=== PATIENT | male | born 1960 | race Caucasian/White ===

== ENCOUNTER → 2020-01-15 09:48 | Outpatient (CLI) | payer MEDICAID, SELFPAY ==
[2020-01-15 10:21] LABS: Basophils % 0.2 % (0.1-2.0); Eosinophils # 0.1 K/mm3 (0.0-0.4); Eosinophils % 4.3 % (0.1-12.0); Hematocrit 26.5 % (42.0-52.0); Hemoglobin 8.2 g/dL (14.1-18.0); Lymphocytes # 0.6 K/mm3 (0.7-4.5); Mean Corpuscular Hemoglobin 32.7 pg (27.0-31.2); Mean Corpuscular Volume 105.5 fl (80-94); Mean Platelet Volume 10.5 fl (7.4-10.4); Monocytes # 0.1 K/mm3 (0.1-1.0); Neutrophils # 1.7 K/mm3 (1.8-7.8); Neutrophils % 67.5 % (37.0-80.0); Platelet Count 77 K/mm3 (142-424); Red Blood Count 2.51 M/mm3 (4.60-6.20); Red Cell Distribution Width 16.3 % (11.5-17.5); White Blood Count 2.5 K/mm3 (4.8-10.8)
[2020-01-15 10:48] LABS: Chloride 106 mmol/L (98-107)
[2020-01-15 10:49] LABS: Potassium 4.5 mmoL/L (3.5-5.1); Sodium 138 mmol/L (136-145)
[2020-01-15 10:51] LABS: Alanine Aminotransferase 11 U/L (12-78); Alkaline Phosphatase 191 U/L (38-126); Anion Gap 9.5 mEq/L (5-15); Aspartate Amino Transferase 45 U/L (17-59); Blood Urea Nitrogen 17 mg/dl (9-20); Carbon Dioxide 27 mmol/L (22.0-30.0); Estimated Glomerular Filt Rate 62 ml/min (>60); GFR (African American) 75 ML/MIN (>60)
[2020-01-15 10:52] LABS: Albumin Level 2.8 g/dl (3.5-5.0); Albumin/Globulin Ratio 0.9 (1.1-1.8); Calcium 8.2 mg/dl (8.4-10.2); Glucose 158 mg/dl (74-100); Total Protein,Serum 5.8 g/dl (6.3-8.2)
[2020-01-15 12:24] LABS: INR 1.15 (0.9-1.1); Prothrombin Time 11.5 seconds (9.4-11.8)
[2020-01-16 13:01] LABS: AFP, Tumor Marker 2.3 ng/mL (0.0-8.3)
== END ==
PROVIDERS: Visit Provider Nurse Practitioner Family
DX: K74.60 Unspecified cirrhosis of liver (principal)
CPT/HCPCS: 36415; 80053; 82105; 85025; 85610

== ENCOUNTER → 2020-02-19 09:38 | Outpatient (CLI) | payer MEDICAID, SELFPAY ==
[2020-02-19 10:02] LABS: Basophils % 0.9 % (0.1-2.0); Eosinophils # 0.1 K/mm3 (0.0-0.4); Eosinophils % 3.9 % (0.1-12.0); Hematocrit 24.7 % (42.0-52.0); Lymphocytes # 0.5 K/mm3 (0.7-4.5); Lymphocytes % 22.1 % (10-50); Mean Corpuscular HGB Conc 30.2 g/dL (31.8-35.4); Mean Corpuscular Hemoglobin 31.5 pg (27.0-31.2); Mean Corpuscular Volume 104.3 fl (80-94); Mean Platelet Volume 11.2 fl (7.4-10.4); Monocytes # 0.2 K/mm3 (0.1-1.0); Monocytes % 6.2 % (1.7-9.3); Neutrophils # 1.6 K/mm3 (1.8-7.8); Neutrophils % 66.9 % (37.0-80.0); Platelet Count 88 K/mm3 (142-424); Red Blood Count 2.37 M/mm3 (4.60-6.20); Red Cell Distribution Width 18.1 % (11.5-17.5); White Blood Count 2.4 K/mm3 (4.8-10.8)
[2020-02-19 10:36] LABS: Hemoglobin 7.5 g/dL (14.1-18.0)
== END ==
PROVIDERS: Visit Provider Nurse Practitioner Family
DX: K74.60 Unspecified cirrhosis of liver (principal); I85.00 Esophageal varices without bleeding
CPT/HCPCS: 36415; 85025

== ENCOUNTER 2020-02-19 12:49 | Emergency (ER) | payer MEDICAID, SELFPAY ==
[2020-02-19] VITALS (7 sets, daily range): BP systolic 119–159; BP diastolic 58–74; PULSE 69–94; RESP 17–20; TEMP 36.6–36.9; O2SAT 99–100; BMI 50.7
--- NOTE | 2020-02-19 13:06 | XR_ITS ---
PROCEDURE: XR CHEST PORTABLE CLINICAL HISTORY: fatigue Assist C with COMPARISON: No exams were available for comparison FINDINGS: Mild cardiomegaly without failure. Left subclavian MediPort catheter is present with the tip in the region of the SVC. There is minimal parenchymal opacity in the left midlung may be due to scarring or overlapping vessels. Upright PA and lateral chest may better ascertain. The remaining lungs are clear. There is an old right clavicular fracture. Degenerative changes are present in the shoulders. IMPRESSION: Cardiomegaly. No definite acute finding. Please see above for detail. Dictated by: Kamlesh Chu MD 02/19/2020 14:50 Kamlesh Chu MD in [place] 02/19/2020 14:50
--- NOTE | 2020-02-19 13:12 | HMH.EDGENADL ---
ED Disposition Clinical Impression: Pancytopenia Liver cirrhosis Qualifiers: Hepatic cirrhosis type: unspecified hepatic cirrhosis Ascites presence: with ascites Qualified Code(s): K74.60 - Unspecified cirrhosis of liver Disposition: Home, Self-Care Condition on Discharge: Fair Instructions: DI for Cirrhosis Additional Instructions: You have been evaluated for anemia and pancytopenia. Please take all medications as prescribed. Avoid falls. Follow-up with Dr. Lerner in clinic Monday morning at 9:45 AM. Return to the emergency department if you have any new or worsening symptoms. Referrals: Bebeto Lerner MD [Primary Care Provider] - Time of Disposition: 16:13 - Critical Care Critical Care Time: No Attestation: On , the high probability of a clinically significant, sudden or life threatening deterioration of the following system(s) required my full and direct attention, intervention and personal management. The time I documented below is in addition to time spent performing reported procedures but includes the following listed in this critical care notation. Medical Decision Making - Medical Records Medical records reviewed: Yes: I reviewed the patient's medical records. - Keith Inquiry Pt receiving controlled substance: No Vital Signs: 02/19/20 12:58 02/19/20 13:37 02/19/20 14:00 Temperature 98.4 F Temperature Source Oral Pulse Rate [Right Radial] 82 69 94 H Respiratory Rate 17 20 18 Blood Pressure [Right Arm] 148/72 H 129/71 119/61 Blood Pressure Mean [Right Arm] 97 90 80 Blood Pressure Source [Right Arm] Automatic Cuff Automatic Cuff Blood Pressure Position [Right Arm] Sitting Sitting 02 Sat by Pulse Oximetry 100 100 99 Oxygen Delivery Method Room Air Room Air Room Air 02/19/20 15:00 02/19/20 15:24 02/19/20 15:55 Temperature Temperature Source Pulse Rate [Right Radial] 71 74 72 Respiratory Rate 20 20 20 Blood Pressure [Right Arm] 119/58 L 159/71 H 151/71 H Blood Pressure Mean [Right Arm] 78 100 97 Blood Pressure Source [Right Arm] Automatic Cuff Automatic Cuff Automatic Cuff Blood Pressure Position [Right Arm] Sitting Sitting Sitting 02 Sat by Pulse Oximetry 100 100 100 Oxygen Delivery Method Room Air Room Air Room Air - Lab Data Lab Results 02/19/20 13:06: Stool Occult Blood Negative 02/19/20 13:15: WBC 2.7 L, RBC 2.48 L, Hgb 8.0 L, Hct 26.0 L, MCV 104.6 H, MCH 32.3 H, MCHC 30.8 L, RDW 17.9 H, Plt Count 102 L, MPV 9.3, Neut % (Auto) 66.0, Lymph % (Auto) 23.9, Rock % (Auto) 5.1, Eos % (Auto) 4.5, Baso % (Auto) 0.5, Neut # (Auto) 1.8, Lymph # (Auto) 0.6 L, Rock # (Auto) 0.1, Eos # (Auto) 0.1, Baso # (Auto) 0.0 02/19/20 13:15: PT 12.8 H, INR 1.17 H, APTT 24.9 02/19/20 13:15: Sodium 138, Potassium 4.1, Chloride 106, Carbon Dioxide 28, Anion Gap 8.1, BUN 22 H, Creatinine 1.30 H, Estimated Creat Clear 53, Estimated GFR 56 L, Est GFR ( Amer) 68, Glucose 134 H, Calcium 8.1 L, Total Bilirubin 1.2, AST 46, ALT 12, Alkaline Phosphatase 184 H, Troponin I < 0.01, Total Protein 6.2 L, Albumin 3.1 L, Globulin 3.1, Albumin/Globulin Ratio 1.0 L 02/19/20 13:15: Ammonia 23 Result diagrams: 02/19/20 13:15 02/19/20 13:15 Orders (Tests/Meds): ED MEDICATIONS Discontinued Medications Generic Name Dose Route Start Last Admin Trade Name Freq PRN Reason Stop Dose Admin Ioversol 75 ml 02/19/20 15:08 02/19/20 15:09 Ioversol-350 (74%) 100ml Vial IV 02/19/20 15:09 75 ml ONCE ONE Administration Protocol Sodium Chloride 10 ml 02/19/20 15:08 02/19/20 15:09 Sodium Chloride 0.9% 10ml Syr (Rad Only) IV 02/19/20 15:09 10 ml ONCE ONE Administration ORDERS Category Date Time Status Troponin I Q3H Lab 02/19/20 16:15 Ordered Troponin I Q3H Lab 02/19/20 19:15 Ordered Medical Decision Narrative: In summary this is a 59-year-old male presenting to the emergency department with anemia after blood draw. Patient is clinically stable on arrival, conversational
[2020-02-19 13:21] LABS: Basophils % 0.5 % (0.1-2.0); Eosinophils # 0.1 K/mm3 (0.0-0.4); Eosinophils % 4.5 % (0.1-12.0); Lymphocytes # 0.6 K/mm3 (0.7-4.5); Lymphocytes % 23.9 % (10-50); Mean Corpuscular HGB Conc 30.8 g/dL (31.8-35.4); Mean Corpuscular Hemoglobin 32.3 pg (27.0-31.2); Mean Corpuscular Volume 104.6 fl (80-94); Mean Platelet Volume 9.3 fl (7.4-10.4); Monocytes # 0.1 K/mm3 (0.1-1.0); Monocytes % 5.1 % (1.7-9.3); Neutrophils # 1.8 K/mm3 (1.8-7.8); Platelet Count 102 K/mm3 (142-424); Red Blood Count 2.48 M/mm3 (4.60-6.20); Red Cell Distribution Width 17.9 % (11.5-17.5); White Blood Count 2.7 K/mm3 (4.8-10.8)
[2020-02-19 13:25] LABS: Chloride 106 mmol/L (98-107); Potassium 4.1 mmoL/L (3.5-5.1); Sodium 138 mmol/L (136-145)
[2020-02-19 13:27] LABS: Blood Urea Nitrogen 22 mg/dl (9-20); Creatinine Clearance Estimated 53 mL/min (50-200); Estimated Glomerular Filt Rate 56 ml/min (>60); GFR (African American) 68 ML/MIN (>60)
[2020-02-19 13:28] LABS: Alanine Aminotransferase 12 U/L (12-78); Albumin Level 3.1 g/dl (3.5-5.0); Alkaline Phosphatase 184 U/L (38-126); Anion Gap 8.1 mEq/L (5-15); Aspartate Amino Transferase 46 U/L (17-59); Bilirubin,Total 1.2 mg/dl (0.2-1.3); Calcium 8.1 mg/dl (8.4-10.2); Carbon Dioxide 28 mmol/L (22.0-30.0); Globulin 3.1 g/dL (1.3-3.2); Glucose 134 mg/dl (74-100); Total Protein,Serum 6.2 g/dl (6.3-8.2)
[2020-02-19 13:29] LABS: Ammonia 23 umol/L (9-30)
[2020-02-19 13:35] LABS: Activated Partial Thrombo Time 24.9 seconds (23.6-34.0); INR 1.17 (0.9-1.1); Prothrombin Time 12.8 seconds (9.4-11.8)
[2020-02-19 13:38] LABS: Occult Blood,Stool Negative (Negative)
[2020-02-19 13:45] LABS: Troponin I < 0.01 ng/ml (0.00-0.034)
--- NOTE | 2020-02-19 14:00 | CT_ITS ---
PROCEDURE: CT ABDOMEN PELVIS W CON CLINICAL INDICATION: abd pain, after paracentesis COMPARISON: No exams were available for comparison TECHNIQUE: IV Contrast: 75ML OPTIRAY 350 Oral Contrast None Axial images obtained with sagittal and coronal reformats. All CT scans at the facility use one or more dose reduction, viz: automated exposure control, ma/kV adjustment per patient size (including targeted exams where dose is matched to indication, i.e. head), or iterative reconstruction technique. FINDINGS: There are no previous exams available at this institution for comparison. Lung bases are clear. There is irregularity of the liver surface with a somewhat shrunken liver consistent with cirrhosis. The spleen is enlarged at 18 cm. Portal vein is prominent at 18 mm. Metallic density is present in the mid aspect of the body of the stomach of undetermined etiology. No evidence of hepatic or splenic laceration. The adrenal glands and pancreas have an unremarkable appearance. There is a horseshoe kidney present. No renal obstruction apparent. There is a 2 mm nonobstructing stone in the left renal moiety There is a moderate amount of ascites throughout the abdomen with fluid in the perihepatic and perisplenic region. The ascites does not appear complex or hyperdense. There is a small to medium umbilical hernia with ascitic fluid noted within the hernia. Small fluid collection is present superior to the umbilical hernia and may be due to fluid within a small supraumbilical hernia. This measures 4 cm in with. The umbilical hernia fluid collection measures 5.6 cm in with. The entire abdominal wall is not included on the study due to patient's size. The right abdominal wall is not included on the exam completely. No intestinal obstruction or free air is evident. There is mild thickening of the ascending colon which is nonspecific. There is mild stranding of the fat in the lateral conal fascia inferiorly on the right. Moderate amount fluid is present in the pelvis. No acute bony findings. No evidence of free air or intestinal obstruction. There is mild stranding of the anterior abdominal wall fat. IMPRESSION: 1. Cirrhosis with splenomegaly with a moderate amount of ascites 2. Horseshoe kidney with nonobstructing stone in the left remote E. 3. There is mild stranding of the fat in the right lateral conal fascia. This is nonspecific and may be due to the generalized ascites/hypoproteinemia. 4. Umbilical hernia containing fluid with a small supraumbilical hernia also containing fluid Dictated by: Kamlesh Chu MD 02/19/2020 16:04 Kamlesh Chu MD in [place] 02/19/2020 16:04
--- NOTE | 2020-02-19 14:30 | ECG_ITS ---
APPROVED REPORT Exam: Resting ECG HR:73 bpm ECG Measurements Heart Rate 73 AXES OH 136 P 15 QRSd 90 QRS 5 QT 412 T 27 QTc 453 Conclusion Normal sinus rhythm Junctional ST depression, probably normal Borderline ECG Electronically signed by : Jj Oro, 02/20/2020 07:30:04
== END 2020-02-19 16:40 | disposition home or self-care (01) ==
PROVIDERS: Emergency Provider Emergency Medicine; PCP Family Medicine
DX: D61.818 Other pancytopenia (principal); K74.60 Unspecified cirrhosis of liver; K72.90 Hepatic failure, unspecified without coma; I10 Essential (primary) hypertension; G20 Parkinson's disease; Z79.899 Other long term (current) drug therapy
CPT/HCPCS: 71045; 74177; 80053; 82140; 82272; 84484; 85025; 85610; 85730; 93005; 99284; G0328; Q9967

== ENCOUNTER → 2020-02-21 11:06 | Outpatient (CLI) | payer MEDICAID, SELFPAY ==
[2020-02-21 11:47] LABS: Hematocrit 25.5 % (42.0-52.0); Hemoglobin 8.1 g/dL (14.1-18.0)
== END ==
PROVIDERS: Visit Provider Nurse Practitioner Family
DX: E13.9 Other specified diabetes mellitus without complications (principal); Z79.4 Long term (current) use of insulin; D64.9 Anemia, unspecified
CPT/HCPCS: 36415; 85014; 85018

== ENCOUNTER → 2020-02-22 08:04 | Outpatient (CLI) | payer MEDICAID, SELFPAY ==
[2020-02-22] VITALS (22 sets, daily range): BP systolic 116–152; BP diastolic 58–79; PULSE 65–76; RESP 14–18; TEMP 36.2–37; O2SAT 98–100; BMI 51.5
--- NOTE | 2020-02-22 17:07 | PC.NURSE ---
Patient had 250 cc of urine
--- NOTE | 2020-02-22 17:31 | PC.NURSE ---
Patient had additional 200cc of urine.
[2020-02-22 18:51] LABS: Hemoglobin 9.7 g/dL (14.1-18.0)
--- NOTE | 2020-02-22 19:05 | PC.NURSE ---
Patient tolerated both units of blood very well, remained hemodynamically stable. Patient's port was deaccessed following lab draw for h/h, hep locked and cleaned in sterile technique. Bandaged with 2x2's and tegaderm. Patient also voided additional 300 cc of urine following 2nd dose of ordered lasix.
== END ==
PROVIDERS: PCP Family Medicine; Visit Provider Family Medicine
DX: D61.818 Other pancytopenia (principal)
CPT/HCPCS: 36430; 85014; 85018; 86850; J1642; P9016

== ENCOUNTER → 2020-03-06 17:18 | Outpatient (CLI) | payer MEDICAID, SELFPAY ==
[2020-03-06 17:35] LABS: Chloride 100 mmol/L (98-107); Sodium 137 mmol/L (136-145)
[2020-03-06 17:36] LABS: Basophils % 0.4 % (0.1-2.0); Eosinophils # 0.2 K/mm3 (0.0-0.4); Eosinophils % 5.5 % (0.1-12.0); Hematocrit 30.1 % (42.0-52.0); Hemoglobin 9.7 g/dL (14.1-18.0); Lymphocytes # 0.7 K/mm3 (0.7-4.5); Lymphocytes % 19.4 % (10-50); Mean Corpuscular Hemoglobin 32.1 pg (27.0-31.2); Mean Corpuscular Volume 100.1 fl (80-94); Mean Platelet Volume 10.6 fl (7.4-10.4); Monocytes # 0.2 K/mm3 (0.1-1.0); Monocytes % 6.7 % (1.7-9.3); Neutrophils # 2.3 K/mm3 (1.8-7.8); Platelet Count 99 K/mm3 (142-424); Red Blood Count 3.01 M/mm3 (4.60-6.20); White Blood Count 3.4 K/mm3 (4.8-10.8)
[2020-03-06 17:37] LABS: Alanine Aminotransferase 16 U/L (12-78); Aspartate Amino Transferase 43 U/L (17-59); Blood Urea Nitrogen 21 mg/dl (9-20); Estimated Glomerular Filt Rate 56 ml/min (>60); GFR (African American) 68 ML/MIN (>60)
[2020-03-06 17:38] LABS: Albumin Level 3.2 g/dl (3.5-5.0); Albumin/Globulin Ratio 1.1 (1.1-1.8); Alkaline Phosphatase 191 U/L (38-126); Bilirubin,Total 1.1 mg/dl (0.2-1.3); Calcium 8.1 mg/dl (8.4-10.2); Carbon Dioxide 32 mmol/L (22.0-30.0); Cholesterol 118 mg/dl (140-200); Globulin 2.9 g/dL (1.3-3.2); Glucose 83 mg/dl (74-100); Total Protein,Serum 6.1 g/dl (6.3-8.2); Triglycerides 67 mg/dl (30-150); VLDL Cholesterol 13 mg/dL (0-40)
[2020-03-06 18:34] LABS: Direct LDL Cholesterol 55.89 mg/dL (100-129)
[2020-03-06 19:17] LABS: Chol/HDL Ratio 2.8 (1-3.5); HDL Cholesterol 42 mg/dl (40-60)
[2020-03-06 19:20] LABS: Hemoglobin A1C 5.4 % (4.0-6.0)
[2020-03-09 11:39] LABS: HIV Screen 4th Generation wRfx Non Reactive (Non Reactive); Hep B Core Ab, Total Negative (Negative); Hep B Surface Ab, Qual Reactive (.); Hepatitis C Antibody 0.2 s/co ratio (0.0-0.9)
== END ==
PROVIDERS: Visit Provider Family Medicine
DX: E13.9 Other specified diabetes mellitus without complications (principal); K74.60 Unspecified cirrhosis of liver
CPT/HCPCS: 80053; 80061; 83036; 85025; 86703; 86704; 86706; 87380; G0432

== ENCOUNTER 2020-03-24 12:26 | Observation (INO) | payer MEDICAID, SELFPAY ==
[2020-03-24] VITALS (10 sets, daily range): BP systolic 148–157; BP diastolic 74–86; PULSE 85–95; RESP 20–21; TEMP 36.7–36.8; O2SAT 96–99; BMI 48.6
--- NOTE | 2020-03-24 12:32 | XR_ITS ---
PROCEDURE: XR CHEST 2V CLINICAL HISTORY: wheezing Post paracentesis COMPARISON: CT CT ABDOMEN PELVIS W CON from 02/19/2020 CR XR CHEST PORTABLE from 02/19/2020 FINDINGS: Cardiomegaly without failure. There is a left subclavian MediPort catheter present with the tip in the region the SVC. The lungs are clear without infiltrates, suspicious nodules, or pleural effusions. There is an old right clavicular fracture. Degenerative changes are present involving the left sternoclavicular joint. IMPRESSION: No acute finding. Mild cardiomegaly Dictated by: Kamlesh Chu MD 03/24/2020 15:18 Kamlesh Chu MD in [place] 03/24/2020 15:18
--- NOTE | 2020-03-24 12:33 | US_ITS ---
PROCEDURE: US PARACENTESIS CLINICAL INDICATION: ASCITES, abdominal distension COMPARISON: No exams were available for comparison TECHNIQUE: Informed consent was obtain prior to procedure. After appropriate Time out, under aseptic conditions and local anesthesia with 1% buffered lidocaine using sonographic guidance a 6 [place] Qkvr-E-Ubqrsbip catheter was inserted into the largest pocket of fluid localized in the right lower quadrant. 8200 mL of serous fluid was drained. The patient tolerated the procedure well and left the radiology suite in stable condition. FINDINGS: Diffuse ascites IMPRESSION: Successful sonographic guided paracentesis without complication. Dictated by: Kamlesh Chu MD 05/05/2020 07:53 Kamlesh Chu MD in [place] 05/05/2020 07:53
--- NOTE | 2020-03-24 12:48 | HMH.PHAINT ---
Medication reconciliation completed using Physician Office Visit Note from 03/24/20.
[2020-03-24 13:15] LABS: Basophils % 0.3 % (0.1-2.0); Eosinophils # 0.2 K/mm3 (0.0-0.4); Eosinophils % 3.7 % (0.1-12.0); Hematocrit 28.6 % (42.0-52.0); Hemoglobin 9.1 g/dL (14.1-18.0); Lymphocytes # 0.6 K/mm3 (0.7-4.5); Lymphocytes % 15.2 % (10-50); Mean Corpuscular HGB Conc 31.7 g/dL (31.8-35.4); Mean Corpuscular Hemoglobin 32.6 pg (27.0-31.2); Mean Corpuscular Volume 102.7 fl (80-94); Mean Platelet Volume 12.4 fl (7.4-10.4); Monocytes # 0.2 K/mm3 (0.1-1.0); Monocytes % 5.5 % (1.7-9.3); Neutrophils # 3.1 K/mm3 (1.8-7.8); Neutrophils % 75.3 % (37.0-80.0); Platelet Count 97 K/mm3 (142-424); Red Blood Count 2.78 M/mm3 (4.60-6.20); Red Cell Distribution Width 21.7 % (11.5-17.5); White Blood Count 4.1 K/mm3 (4.8-10.8)
[2020-03-24 13:19] LABS: Chloride 101 mmol/L (98-107)
[2020-03-24 13:20] LABS: Potassium 3.9 mmoL/L (3.5-5.1); Sodium 135 mmol/L (136-145)
[2020-03-24 13:22] LABS: Alanine Aminotransferase 15 U/L (12-78); Alkaline Phosphatase 208 U/L (38-126); Anion Gap 7.9 mEq/L (5-15); Aspartate Amino Transferase 45 U/L (17-59); Bilirubin,Total 1.2 mg/dl (0.2-1.3); Blood Urea Nitrogen 23 mg/dl (9-20); Calcium 8.2 mg/dl (8.4-10.2); Carbon Dioxide 30 mmol/L (22.0-30.0); Estimated Glomerular Filt Rate 44 ml/min (>60); GFR (African American) 53 ML/MIN (>60); Globulin 2.9 g/dL (1.3-3.2); Glucose 165 mg/dl (74-100); Total Protein,Serum 5.9 g/dl (6.3-8.2)
[2020-03-24 13:40] LABS: INR 1.23 (0.9-1.1); Prothrombin Time 13.4 seconds (9.4-11.8)
--- NOTE | 2020-03-24 15:53 | HMH.PHAVTE ---
[facility] Pharmacy VTE Monitoring - Patient Demographics Admission date: 03/24/20 Report Date: 03/24/20 Time: 15:53 Allergies/Adverse Reactions: Patient Allergies acetaminophen [From Darvocet-N] Allergy (Severe, Verified 03/24/20 11:17) Unknown allergy reaction codeine Allergy (Severe, Verified 03/24/20 11:17) Unknown duloxetine [From Cymbalta] Allergy (Severe, Verified 03/24/20 11:17) Unknown propoxyphene [From Darvocet-N] Allergy (Severe, Verified 03/24/20 11:17) Unknown allergy reaction Height: 1.65 m Weight: 132.449 kg - VTE Risk Labs: VTE Related Lab Results Hgb 9.1 g/dL (14.1-18.0) L 03/24/20 13:05 Hct 28.6 % (42.0-52.0) L 03/24/20 13:05 Plt Count 97 K/mm3 (142-424) L 03/24/20 13:05 PT 13.4 seconds (9.4-11.8) H 03/24/20 13:05 INR 1.23 (0.9-1.1) H 03/24/20 13:05 BUN 23 mg/dl (9-20) H 03/24/20 13:05 Creatinine 1.60 mg/dl (0.66-1.25) H 03/24/20 13:05 - Prophylaxis VTE Prophylaxis Ordered?: Yes Types of VTE Prophylaxis: TEDS Knee High Location of Applied Device: Bilateral Lower Extremeties
[2020-03-24 16:17] LABS: Coronavirus 19 IgG Antibody Positive (Negative)
[2020-03-24 16:19] LABS: Coronavirus 19 IgM Antibody Positive (Negative)
[2020-03-24 17:04] LABS: Adenovirus,PCR Not Detected (NotDetected); Bordetella Pertussis Not Detected (NotDetected); Chlamydophila Pneumoniae, PCR Not Detected (NotDetected); Coronavirus 19, PCR Not Detected (NotDetected); Coronavirus 229E Not Detected (NotDetected); Coronavirus NL63 Not Detected (NotDetected); Coronavirus OC43 Not Detected (NotDetected); Coronovirus HKU1,PCR Not Detected (NotDetected); Human Metapneumovirus Not Detected (NotDetected); Influenza A, PCR Not Detected (NotDetected); Influenza AH1, 2009 Not Detected (NotDetected); Influenza AH1, PCR Not Detected (NotDetected); Influenza AH3,PCR Not Detected (NotDetected); Influenza B, PCR Not Detected (NotDetected); Mycoplasma Pneumoniae, PCR Not Detected (NotDetected); Parainfluenza 1, PCR Not Detected (NotDetected); Parainfluenza 2, PCR Not Detected (NotDetected); Parainfluenza 3, PCR Not Detected (NotDetected); Parainfluenza 4, PCR Not Detected (NotDetected); Respiratory Syncytial Virus Not Detected (NotDetected); Rhinovirus/Enterovirus Not Detected (NotDetected)
[2020-03-24 18:21] LABS: Ammonia < 9 umol/L (9-30)
--- NOTE | 2020-03-24 19:19 | HMH.HP ---
*Admission Date: 03/24/20 *Chief complaint: ascites, general weakness,edema *History of present illness: Patient is a 60-year-old male, known to me from the office. He was admitted today for increasing debility, weakness, and worsening ascites. He has end-stage cirrhosis, is not a candidate for liver transplant. He is actively followed at gastroenterology services. He has had several high-volume paracenteses done and has been reaccumulating fluid at a high rate. He came to me today with clear fluid leaking from a puncture site in his left lower quadrant. He has been gaining about 3 pounds a day since last week. Dr. Chu was kind enough to work him into the radiology suite, and under ultrasound guidance removed 8200 cc of ascites fluid. Fluid was sent for analysis. There was no significant abdominal tenderness, so my suspicion for spontaneous bacterial peritonitis is clinically low. Patient has a large nonincarcerated umbilical hernia. Patient has bilateral venous stasis dermatitis of both lower extremities. He is being followed by home health, Unna boots are applied several times weekly. We will ask physical therapy and wound care to see and evaluate. Patient has type 2 diabetes, marginal control. 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 Patient has been using a rolling walker for the last year or so. He has had increasing weakness. He requires assistance with all ADLs. During 1 admission at [facility] in [place] hospice care was discussed. Patient did not feel he was ready for that at this point, and I feel he would still decline the hospice option. Patient had a fever about 2 weeks ago. He is IgG and IgM antibodies were positive for Covid, but his PCR is negative. On exam in the office I did hear some crackles in his right base, air exchange was diminished. His chest x-ray however is clear. He is however clearly volume overloaded. [facility] History Medical History: Reports:: Atrial Fibrillation, Cancer, Congestive Heart Failure, Diabetes Mellitus Type 2, Gall Bladder Disease, Gastrointestinal Bleed, Hypertension Denies:: Diabetes Mellitus Type 1, MRSA *Have you ever received a pneumonia vaccine?: Yes *Have you received a flu vaccine this season?: Yes Other Medical History: Reports: Glaucoma, Liver Disease - *Social History Smoking Status: Never smoker Tobacco Type: smokeless tobacco Alcohol Intake: former Alcohol Intake Frequency:: other Substance Use Type: denies use *Occupational Status:: disabled Housing: house Household Members: spouse *Travel in the last 8 weeks: None Family Hx:: Cancer, Heart Attack Review of Systems - Constitutional Reports body ache(s), Reports fever(s), Reports lack of energy, Reports malaise, Reports weight gain, Denies anorexia - Eyes Denies change in vision - ENT Reports nasal congestion, Reports nasal discharge, Denies abnormal hearing, Denies difficulty swallowing - *Cardiovascular Reports generalized swelling, Reports leg swelling, Reports leg sores, Denies chest pain, Denies chest pain at rest - *Respiratory Reports chest congestion, Reports shortness of breath - *Gastrointestinal Reports abdominal pain, Denies coffee ground vomit - *Genitourinary Reports side pain, Denies urinary hesitancy - *Musculoskeletal Reports abnormal walking, Reports joint pain, Reports decreased muscle mass, Reports back pain, Reports joint swelling, Reports limited joint movement, Reports muscle cramps, Reports muscle weakness, Reports body aches, Reports neck pain, Reports stiffness - Integumentary/Breasts Reports unusual bruising, Denies yellowing of the skin - *Neurologic Reports abnormal walking, Reports unsteadiness, Reports dizziness, Reports frequent falls, Reports lack of coordination, Denies behavioral changes - Psychiatric Reports anxiety, Denies behavioral changes, De
--- NOTE | 2020-03-24 19:30 | ECG_ITS ---
APPROVED REPORT Exam: Resting ECG HR:91 bpm ECG Measurements Heart Rate 91 AXES CO 158 P 36 QRSd 106 QRS 18 QT 382 T 48 QTc 469 Conclusion Normal sinus rhythm Normal ECG Electronically signed by : Jj Oro, 03/25/2020 08:30:22
--- NOTE | 2020-03-24 21:09 | PC.WOUNDNOTE ---
Wound Location: LEFT FOREARM Length: Width: Depth: Undermining Y/N: Tunneling cm: Granulation %: Slough/necrotic tissue %: Inflammation/swelling Y/N: Pain and/or tenderness Y/N: Exudate: Serosanguinous Sanguinous Serosanguinous Seropurulent Purulent Color: Clear [place] Cloudy/milky [place] Red Green Yellow Brown [place] Blue Consistency: Thick Thin Amount: None Odor Y/N:N SEVERAL [place] NOTED, NO DRAINAGE.
--- NOTE | 2020-03-24 21:10 | PC.WOUNDNOTE ---
Addendum entered by Waylon Lacey RN 03/26/20 18:15: RED AREA MEASURES AT 9 INCH LONG BY 7 INCH WIDE. Original Note: Wound Location: LEFT LOWER EXTREMITY Length: Width: Depth: Undermining Y/N: Tunneling cm: Granulation %: Slough/necrotic tissue %: Inflammation/swelling Y/N:Y Pain and/or tenderness Y/N:Y Color: Clear [place] Red Consistency: Thin Amount: None Odor Y/N:N SKIN PINK IN COLOR, SCATTERED BLISTERS NOTED
[2020-03-24 21:17] LABS: Appearance,Body Fld. Normal; Source, Body Fld. Paracentesis Fluid
[2020-03-24 21:18] LABS: Volume,Body Fld. 8200 mL
--- NOTE | 2020-03-24 21:23 | PC.WOUNDNOTE ---
Addendum entered by Waylon Lacey RN 03/26/20 18:14: RED AREA MEASURES AT 12 INCH LONG BY 13 INCH WIDE Original Note: Wound Location: RIGHT LOWER EXTREMITY Length: Width: Depth: Undermining Y/N: Tunneling cm: Granulation %: Slough/necrotic tissue %: Inflammation/swelling Y/N:Y Pain and/or tenderness Y/N:Y Exudate: Color: Clear [place]INK Red Consistency: Thin Amount: Scant Odor Y/N:N SCATTERED BLISTERS NTOED, SCANT DRAINAGE NOTED
--- NOTE | 2020-03-24 21:25 | PC.WOUNDNOTE ---
Wound Location: RIGHT LOWER EXTREMITY Length: Width: Depth: Undermining Y/N: Tunneling cm: Granulation %: Slough/necrotic tissue %: Inflammation/swelling Y/N:Y Pain and/or tenderness Y/N:Y Exudate: Serosanguinous Color: Clear [place] Red Consistency: Thick Thin Amount: Scant Odor Y/N:N BLISTERS NOTED, SCANT AMOUNT OF DRAINAGE.
--- NOTE | 2020-03-24 21:26 | PC.WOUNDNOTE ---
Wound Location: LEFT LOWER EXTREMITY Length: Width: Depth: Undermining Y/N: Tunneling cm: Granulation %: Slough/necrotic tissue %: Inflammation/swelling Y/N:Y Pain and/or tenderness Y/N:Y Exudate: Color: Clear [place] Red Consistency: Thick Thin Amount: Odor Y/N:N SCATTERED BLISTERS NOTED
[2020-03-24 21:28] LABS: POC Glucose,Bedside 202 (70-110)
--- NOTE | 2020-03-24 21:28 | PC.WOUNDNOTE ---
Wound Location: RIGHT LOWER EXTREMITY Length: Width: Depth: Undermining Y/N: Tunneling cm: Granulation %: Slough/necrotic tissue %: Inflammation/swelling Y/N:Y Pain and/or tenderness Y/N:Y Color: Clear [place] Red Consistency: Thick Thin Amount: None Odor Y/N:N SEVERAL BLISTERS NOTED, NO DRAINAGE.
--- NOTE | 2020-03-24 21:29 | PC.WOUNDNOTE ---
Addendum entered by Waylon Lacey RN 03/26/20 18:13: RED AREA MEASURES AT 6INCH LONG BY 9INCH WIDE Original Note: Wound Location: LEFT LOWER EXTREMITY Length: Width: Depth: Undermining Y/N: Tunneling cm: Granulation %: Slough/necrotic tissue %: Inflammation/swelling Y/N:Y Pain and/or tenderness Y/N:Y Exudate: Sanguinous Color: Clear [place] Red Consistency: Thick Thin Amount: Small Odor Y/N:Y SEVERAL OPEN BLISTERS, SMALL AMOUNT OF DRAINAGE NOTED.
[2020-03-24 21:36] LABS: RBC,Body Fluid < 10 cells/uL (< 10 X 10^3); TNC,Body Fluid 55 cells/uL (< 1000)
--- NOTE | 2020-03-24 21:38 | PC.NURSE ---
PATIENT ARRIVED ON FLOOR, A&O X4, LUNGS DIMINSHED WITH FINE CRACKLES, PULSES: BILATERAL LOWER EXTREMITY +2 PITTING EDEMA AND PEDAL PULSES WEAKER THAN RADIAL PULSES. PATIENT TESTED POSITIVE FOR IGM, PROTOCOL FOLLOWED. PCR COVID WAS NEGATIVE. PER DR. CASTILLO, REMOVE ULNA BOOTS AND LEAVE OFF UNTIL WOUND CONSULT. PICTURES TAKEN AND DOCUMENTED. SITE FOR PARACENTESIS CONTINUED TO HAVE LEAKAGE. THIS RN REPLACED BANDAID DRESSING WITH NON ADHERENT DRESSING AND TEGADERM. NO OTHER CONCERNS AT THIS TIME.
--- NOTE | 2020-03-24 22:19 | PC.NURSE ---
albumin dosage verified with Giles from pharmacy, pharmacy also aware of the two medications that were not able to be given because they were not available
[2020-03-24 22:26] LABS: Mononuclear WBCs,Body Fluid 92 %; Polynuclear WBC,Body Fluid 8 %
--- NOTE | 2020-03-24 23:50 | PC.NURSE ---
received call from roxy arreola rn requesting patient to have his home med of oxycodone 10mg po tid for chronic back pain . anny montgomery for dr bailey agreed. order was placed.
[2020-03-25] VITALS: BP 127/74; PULSE 100; RESP 19; TEMP 36.8; O2SAT 100
[2020-03-25 03:49] VITALS: BP 140/52; PULSE 102; RESP 20; TEMP 37.4; O2SAT 99
--- NOTE | 2020-03-25 04:21 | PC.NURSE ---
pt has rested on and off t/o shift, left chest port accessed by MIGDALIA Dexter, albumin transfusing per JUN t/o shift, has tolerated well, pt has used urinal independently this shift with 1925 mL out so far, systolic BP 127-152, HR 88-102, 98-100% O2 sat on 2L NC, complained of back pain one time this shift, motion picture projectionist apprentice notified and home oxycodone restarted, pt has no complaints of SOA, chest pain, N/V/D
[2020-03-25 05:04] VITALS: BMI 48.2
[2020-03-25 05:26] LABS: POC Glucose,Bedside 200 (70-110)
--- NOTE | 2020-03-25 06:00 | XR_ITS ---
PROCEDURE: XR CHEST 2V CLINICAL HISTORY: chf Congestive heart failure COMPARISON: CR XR CHEST PORTABLE from 02/19/2020 CR XR CHEST 2V from 03/24/2020 FINDINGS: Mild cardiomegaly without failure. The lungs are clear bilaterally. There is a MediPort catheter from left subclavian approach with the tip in the region the SVC. The lungs are clear without infiltrates, suspicious nodules, or pleural effusions. There is an old right clavicular fracture. Mild thoracic curvature convex left. IMPRESSION: As above, no acute finding. Dictated by: Kamlesh Chu MD 03/25/2020 06:49 Kamlesh Chu MD in [place] 03/25/2020 06:49
[2020-03-25 06:21] VITALS: PULSE 94; TEMP 36.9; O2SAT 100
--- NOTE | 2020-03-25 06:22 | PC.NURSE ---
pt went off floor to xray, room air sat checked when pt returned to floor, 100%, pt remains on room air at this time sitting at bedside
[2020-03-25 07:26] LABS: Chloride 102 mmol/L (98-107); Potassium 3.8 mmoL/L (3.5-5.1); Sodium 139 mmol/L (136-145)
[2020-03-25 07:29] LABS: Alanine Aminotransferase 26 U/L (12-78); Albumin Level 3.5 g/dl (3.5-5.0); Albumin/Globulin Ratio 1.3 (1.1-1.8); Alkaline Phosphatase 193 U/L (38-126); Anion Gap 8.8 mEq/L (5-15); Aspartate Amino Transferase 41 U/L (17-59); Bilirubin,Total 1.2 mg/dl (0.2-1.3); Blood Urea Nitrogen 22 mg/dl (9-20); Calcium 8.5 mg/dl (8.4-10.2); Carbon Dioxide 32 mmol/L (22.0-30.0); Creatinine Clearance Estimated 46 mL/min (50-200); Estimated Glomerular Filt Rate 52 ml/min (>60); GFR (African American) 62 ML/MIN (>60); Globulin 2.8 g/dL (1.3-3.2); Glucose 158 mg/dl (74-100); Total Protein,Serum 6.3 g/dl (6.3-8.2)
[2020-03-25 07:36] LABS: Basophils % 0.4 % (0.1-2.0); Eosinophils # 0.1 K/mm3 (0.0-0.4); Eosinophils % 5.1 % (0.1-12.0); Hematocrit 28.9 % (42.0-52.0); Hemoglobin 8.7 g/dL (14.1-18.0); Lymphocytes # 0.5 K/mm3 (0.7-4.5); Lymphocytes % 17.9 % (10-50); Mean Corpuscular Volume 106.8 fl (80-94); Mean Platelet Volume 10.5 fl (7.4-10.4); Monocytes # 0.2 K/mm3 (0.1-1.0); Monocytes % 6.9 % (1.7-9.3); Neutrophils % 69.8 % (37.0-80.0); Platelet Count 97 K/mm3 (142-424); Red Cell Distribution Width 21.1 % (11.5-17.5); White Blood Count 2.8 K/mm3 (4.8-10.8)
[2020-03-25 07:50] LABS: INR 1.07 (0.9-1.1); Prothrombin Time 11.8 seconds (9.4-11.8)
[2020-03-25 08:00] VITALS: BP 157/81; PULSE 96; RESP 16; TEMP 37; O2SAT 97
--- NOTE | 2020-03-25 08:50 | HMH.ACPN2 ---
Internal Medicine - PN: Subj *Date: 03/25/20 *Time: 10:30 Interval history: 60-year-old male lying in bed resting quietly, [id number] is in room also. He reports he is feeling much better today than yesterday after 8300 cc was removed during paracentesis. He reports he was at liver specialist and had 3300 cc removed 03/20/20. He does report at home he will ambulate using cane/walker and wheelchair. He does report his edema has increased in his bilateral lower extremities, he has had Unna boots applied in the past and we will consult PT for wound/edema consult Exam Vital signs and Labs for Last 24 Hours: Temp Pulse Resp BP Pulse Ox 98.5 F 94 H 20 140/52 L 100 03/25/20 06:21 03/25/20 06:21 03/25/20 03:49 03/25/20 03:49 03/25/20 06:21 Laboratory Results - last 24 hr 03/24/20 13:05: WBC 4.1 L, RBC 2.78 L, Hgb 9.1 L, Hct 28.6 L, MCV 102.7 H, MCH 32.6 H, MCHC 31.7 L, RDW 21.7 H, Plt Count 97 L, MPV 12.4 H, Neut % (Auto) 75.3, Lymph % (Auto) 15.2, [place] % (Auto) 5.5, Eos % (Auto) 3.7, Baso % (Auto) 0.3, Neut # (Auto) 3.1, Lymph # (Auto) 0.6 L, [place] # (Auto) 0.2, Eos # (Auto) 0.2, Baso # (Auto) 0.0 03/24/20 13:05: PT 13.4 H, INR 1.23 H 03/24/20 13:05: Sodium 135 L, Potassium 3.9, Chloride 101, Carbon Dioxide 30, Anion Gap 7.9, BUN 23 H, Creatinine 1.60 H, Estimated GFR 44 L, Est GFR ( Amer) 53 L, Glucose 165 H, Calcium 8.2 L, Total Bilirubin 1.2, AST 45, ALT 15, Alkaline Phosphatase 208 H, Total Protein 5.9 L, Albumin 3.0 L, Globulin 2.9, Albumin/Globulin Ratio 1.0 L 03/24/20 13:05: SARS-CoV-2 IgG Ab (Rapid) Positive A, SARS-CoV-2 IgM Ab (Rapid) Positive A 03/24/20 14:00: Fluid Source Paracentesis fluid, Fluid Volume 8200, Fluid Appearance Normal, Fluid RBC (Auto) < 10, Fld Tot Nucleated Cell 55, Fld Polynuclear WBCs % 8, Fld Mononuclear WBCs % 92 03/24/20 16:40: Chlamy pneumoniae PCR Not detected, Adenovirus (PCR) Not detected, B. pertussis DNA (PCR) Not detected, Coronavirus OC43 (PCR) Not detected, Coronavirus HKU1 (PCR) Not detected, Coronavirus 229E (PCR) Not detected, SARS-CoV-2 (PCR) Not detected, Coronavirus NL63 (PCR) Not detected, Human Metapneumovir PCR Not detected, Influenza A (H1) PCR Not detected, Influ A (H1N1/09) PCR Not detected, Influenza A (H3) PCR Not detected, Influenza Type A (PCR) Not detected, Influenza Type B (PCR) Not detected, M. pneumoniae (PCR) Not detected, Parainfluenza 1 (PCR) Not detected, Parainfluenza 2 (PCR) Not detected, Parainfluenza 3 (PCR) Not detected, Parainfluenza 4 (PCR) Not detected, RSV (PCR) Not detected, Entero/Rhino (PCR) Not detected 03/24/20 17:55: Ammonia < 9 L 03/24/20 21:01: POC Glucose 202 H 03/25/20 05:16: POC Glucose 200 H 03/25/20 06:27: PT 11.8, INR 1.07 03/25/20 06:27: WBC 2.8 L D, RBC 2.70 L, Hgb 8.7 L, Hct 28.9 L, MCV 106.8 H, MCH 32.0 H, MCHC 30.0 L, RDW 21.1 H, Plt Count 97 L, MPV 10.5 H, Neut % (Auto) 69.8, Lymph % (Auto) 17.9, [place] % (Auto) 6.9, Eos % (Auto) 5.1, Baso % (Auto) 0.4, Neut # (Auto) 2.0, Lymph # (Auto) 0.5 L, [place] # (Auto) 0.2, Eos # (Auto) 0.1, Baso # (Auto) 0.0 03/25/20 06:27: Sodium 139, Potassium 3.8, Chloride 102, Carbon Dioxide 32 H, Anion Gap 8.8, BUN 22 H, Creatinine 1.40 H, Estimated Creat Clear 46, Estimated GFR 52 L, Est GFR ( Amer) 62, Glucose 158 H, Calcium 8.5, Total Bilirubin 1.2, AST 41, ALT 26 D, Alkaline Phosphatase 193 H, Total Protein 6.3, Albumin 3.5 D, Globulin 2.8, Albumin/Globulin Ratio 1.3 I & O for Last 24 hours: Intake & Output 03/22/20 03/23/20 03/24/20 03/25/20 23:59 23:59 23:59 23:59 Intake Total 360 / 360 480 / 480 Output Total 1100 / 1300 1450 / 1450 Balance -740 / -940 -970 / -970 Weight 292 lb 289 lb 9 oz - Constitutional no acute distress, obese - *Routine HEENT Exam Head: Present: normocephalic Eye: Present: EOMI ENT: Present: mucous membranes moist - *Routine Neck Exam Present: trachea midline. Absent: JVD, tracheal deviation - *Routine Respiratory Exam Present: CTA bilateral
--- NOTE | 2020-03-25 09:47 | HMH.PTEV ---
Physical Therapy Evaluation Rehab PT IP Evaluation Start: 03/24/20 19:14 Freq: ONCE Status: Active Protocol: Document 03/25/20 09:27 PADDY (Rec: 03/25/20 09:47 PADDY [id number]) Subjective/History History History This is the initial IP PT evaluation for Landen Leung. Pt is a 60 y/o male admitted to [facility] due to complications from end stage cirrhosis. Pt has significant fluid retention in abdomen and BLE w/ cellulitis. Pt has been receiving nsg for wound care having unna boots applied weekly. Pt uses SPC as AD at home and also has walker but does not like to use it. Subjective Subjective no complaints from pt other than needing to use the restroom Rehab PT IP Eval Objective Appearance Patient Behavior Appropriate,Cooperative Patient Orientation Person,Place,Time Difficulty following instructions none Speech Pattern Clear Ambulation Patient Able to Ambulate Yes Ambulation Observation IP General Gait Pattern Observation Shuffling Step Ambulation Distance (feet) 40 Ambulation Assistive Device Straight Cane Ambulation Ability Supervision/Stand by Balance Ability to Arise Able, uses arms to help Sitting Balance Steady, safe Standing Balance Steady, wide stance Dynamic Sitting Balance Ability Good Dynamic Standing Balance Ability Fair Transfers Bed Transfer Ability Independent Sit to Stand Bed Transfer Ability Independent Rehab PT IP prob,goals,plan Problems Date of Evaluation: 03/25/20 PT IP Problems Gait,Self care,Safety Rehab Potential Rehab Potential Poor Equipment Needs Assistive Devices Straight Cane Plan PT Intervention Plan Transfers,Gait,Therapeutic Exercise PT Plan Frequency BID Duration LOS Discharge Goals Bed Transfer Ability Independent Sit to Stand Chair Transfer Ability Independent Ambulation Assistive Device Straight Cane Ambulation Distance (feet) 40 Discharge Plan PT Discharge Plan pt to return home and resume HHPT and nsg once medically stable G -code Required No Eval Complexity Pat
--- NOTE | 2020-03-25 09:48 | HMH.PTWOUND ---
Rehab Inpt Wound Evaluation Rehab IP Wound Evaluation Start: 03/24/20 18:44 Freq: ONCE Status: Active Protocol: Document 03/25/20 09:27 PADDY (Rec: 03/25/20 09:47 PADDY [id number]) Rehab PT Wound Assessment Subjective Subjective Pt reports he has been getting unna boots at home from nsg Wound Left Lower Leg Wound Type cellulitis Wound Bed Appearance [place] Wound Margins Description cellulitis - no open wounds Surrounding Tissue Appearance [place] Wound Drainage Description Serous Drainage Amount Scant Drainage Odor No Odor Dressing Status Open to Air Primary Dressing Unna Boot Wound Secondary Dressing Type Unna Boot Right Lower Leg Wound Type cellulitis Wound Bed Appearance [place] Wound Margins Description no open wounds - cellulitis Surrounding Tissue Appearance [place] Edema Type Pitting Edema Degree 3+ Query Text:1+ Trace, Barely Detectable, Rebound 15-30 seconds 2+ Moderate, Slight Indentation, Rebound 10-20 seconds 3+ Deep, Deeper Indentation, Rebound > 30 seconds 4+ Very Deep, Rebound > 60 seconds Edema Appearance Shiny,Tight,Hard,Stretched Looking,Red Surrounding Tissue Temperature Warm Wound Drainage Description Serous Drainage Amount Scant Drainage Odor No Odor Dressing Status Open to Air Primary Dressing Unna Boot Wound Secondary Dressing Type Unna Boot Dressing Change Date 03/25/20 Dressing Change Patient Tolerance Tolerated Well Plan/Recommendation Comment pt has no open wounds - nsg to apply unna boot per CWS discretion. Nsg to follow w/ wound care and consult CWS if concerns arise. Eval Complexity Eval Charge Codes 73116 - Low Complexity PHYSICIAN CERTIFICATION: I certify the specified therapy services for Landen Leung are required, authorized, and reviewed every 30 days.
--- NOTE | 2020-03-25 09:54 | SW/DCPLANNER ---
I have spoke with this patient and sister in law regarding Hospice services. Patient stated that he is not interested in Hospice services at this time. I asked that once his arrives they call me and I speak with her regarding services. Patient stated that is fine but he is not interested in any services. Patients only questions at this time is when do I get to go home? . I will follow up with this patient/ later today.
[2020-03-25 10:00] VITALS: BMI 48.1
[2020-03-25 10:37] LABS: POC Glucose,Bedside 211 (70-110)
--- NOTE | 2020-03-25 11:55 | HMH.DCSUM ---
General - General Admission date:: 03/24/20 Discharge date: 03/25/20 HPI HPI: Patient is a 60-year-old male, known to me from the office. He was admitted today for increasing debility, weakness, and worsening ascites. He has end-stage cirrhosis, is not a candidate for liver transplant. He is actively followed at gastroenterology services. He has had several high-volume paracenteses done and has been reaccumulating fluid at a high rate. He came to me today with clear fluid leaking from a puncture site in his left lower quadrant. He has been gaining about 3 pounds a day since last week. Dr. Chu was kind enough to work him into the radiology suite, and under ultrasound guidance removed 8200 cc of ascites fluid. Fluid was sent for analysis. There was no significant abdominal tenderness, so my suspicion for spontaneous bacterial peritonitis is clinically low. Patient has a large nonincarcerated umbilical hernia. Patient has bilateral venous stasis dermatitis of both lower extremities. He is being followed by home health, Unna boots are applied several times weekly. We will ask physical therapy and wound care to see and evaluate. Patient has type 2 diabetes, marginal control. 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 Patient has been using a rolling walker for the last year or so. He has had increasing weakness. He requires assistance with all ADLs. During 1 admission at [facility] in [place] hospice care was discussed. Patient did not feel he was ready for that at this point, and I feel he would still decline the hospice option. Patient had a fever about 2 weeks ago. He is IgG and IgM antibodies were positive for Covid, but his PCR is negative. On exam in the office I did hear some crackles in his right base, air exchange was diminished. His chest x-ray however is clear. He is however clearly volume overloaded. Hospital Course Hospital Course: 60-year-old male patient admitted to the floor from office for increasing debility, weakness, and worsening ascites. He does have end-stage cirrhosis and is not a candidate for liver transplant. He is also followed by gastroenterology services and had a paracentesis 03/20 with 3300 cc removed. He reports he felt better for a day or 2 and then started becoming increasingly weak and ascites worsening. He currently denies any abdominal pain or tenderness. He also has an umbilical hernia. He does have bilateral venous stasis dermatitis of both lower extremities and has been followed by home health in the past with Unna boots several times weekly Patient had paracentesis performed yesterday here at [facility] with 8200 cc of fluid removed and sent for analysis Chest x-ray revealed no acute findings Preliminary echo read reveals normal EF Lab work this a.m. WBC 2.8, H/H 8.7/28.9, platelets 97. Sodium 139, potassium 3.8, BUN/creatinine 22/1.4 with GFR 52 All fluid from paracentesis within normal This morning patient sitting up in bed no apparent distress, he reports he is feeling better [id number] present in room also. Patient voicing request to be discharged home. Hospice care discussed with patient's he said he would not make a decision without discussed with his . 1. We will discharge home today 2. Follow-up with Dr. Lerner 03/30/2020 3. Continue current medical regimen 4. Keep all upcoming appointments at gastroenterology Objective Vital signs: Temp Pulse Resp BP Pulse Ox 98.6 F 96 H 16 157/81 H 97 03/25/20 08:00 03/25/20 08:00 03/25/20 08:00 03/25/20 08:00 03/25/20 08:00 no acute distress - *Routine HEENT Exam Head: Present: normocephalic Eye: Present: EOMI ENT: Present: mucous membranes moist - *Routine Neck Exam Present: full ROM, trachea midline. Absent: JVD, tracheal deviation - *Routine Respiratory Ex
--- NOTE | 2020-03-25 14:18 | PC.NURSE ---
Discussed discharge instructions including medications and follow up appointment with pt and . They verbalized understanding. Pharmacy educated pt on home medications. Port was deaccessed and flushed with heparin. Olivia boots were placed this morning to BLE. Pt tolerated well. Pt is waiting for to bring car around. Pt is currently sitting in bed with call light within reach. Bed in lowest position. Call light within reach. VSS. Will continue to monitor.
== END 2020-03-25 13:16 | disposition home health service (06) ==
LOC: 2ND 12:26
PROVIDERS: Admitting Provider Family Medicine; PCP Family Medicine; Visit Provider Family Medicine
DX: K74.60 Unspecified cirrhosis of liver (principal); R18.8 Other ascites; R79.1 Abnormal coagulation profile; I87.2 Venous insufficiency (chronic) (peripheral); Z91.81 History of falling; Z79.4 Long term (current) use of insulin; K72.90 Hepatic failure, unspecified without coma; I11.0 Hypertensive heart disease with heart failure; I50.9 Heart failure, unspecified; Z86.19 Personal history of other infectious and parasitic diseases; E11.9 Type 2 diabetes mellitus without complications; G89.29 Other chronic pain; G20 Parkinson's disease; M15.4 Erosive (osteo)arthritis
CPT/HCPCS: G0379; 36415; 49083; 71046; 80053; 82140; 82962; 85025; 85610; 86328; 87070; 87205; 87581; 87633; 87798; 89051; 93005; 93306; 97161; G0378; J1642; P9047

== ENCOUNTER 2020-04-12 11:33 | Emergency (ER) | payer MEDICAID, SELFPAY ==
[2020-04-12 11:33] VITALS: BP 142/93; PULSE 78; RESP 19; TEMP 36.6; O2SAT 97; BMI 41.3
--- NOTE | 2020-04-12 11:38 | HMH.EDGENADL ---
ED Disposition Clinical Impression: Bilateral lower extremity edema Cirrhosis Qualifiers: Hepatic cirrhosis type: alcoholic cirrhosis Ascites presence: with ascites Qualified Code(s): K70.31 - Alcoholic cirrhosis of liver with ascites Disposition: Home, Self-Care Condition on Discharge: Good Additional Instructions: Continues in compressive stockings, prescribed diuretics, and elevation today with bilateral lower extremity edema. He will need to return if any fever/chills, worsening pain, worsening swelling, purulent drainage from any site on his lower extremities, change in activity level, or other new concerning symptoms. Referrals: Bebeto Lerner MD [Primary Care Provider] - - Critical Care Critical Care Time: No Attestation: On , the high probability of a clinically significant, sudden or life threatening deterioration of the following system(s) required my full and direct attention, intervention and personal management. The time I documented below is in addition to time spent performing reported procedures but includes the following listed in this critical care notation. Medical Decision Making - Medical Records Medical records reviewed: Yes: I reviewed the patient's medical records. - Keith Inquiry Pt receiving controlled substance: No Vital Signs: 04/12/20 11:33 Temperature 98 F Temperature Source Oral Pulse Rate [Left Radial] 78 Respiratory Rate 19 Blood Pressure [Right Arm] 142/93 H Blood Pressure Mean [Right Arm] 109 Blood Pressure Source [Right Arm] Automatic Cuff Blood Pressure Position [Right Arm] Sitting 02 Sat by Pulse Oximetry 97 Oxygen Delivery Method Room Air - Lab Data Lab Results 04/12/20 12:40: WBC 3.6 L, RBC 2.94 L, Hgb 9.6 L, Hct 30.2 L, MCV 102.6 H, MCH 32.7 H, MCHC 31.9, RDW 19.9 H, Plt Count 100 L, MPV 8.8, Neut % (Auto) 82.2 H, Lymph % (Auto) 10.5, [place] % (Auto) 6.2, Eos % (Auto) 0.8, Baso % (Auto) 0.2, Neut # (Auto) 3.0, Lymph # (Auto) 0.4 L, [place] # (Auto) 0.2, Eos # (Auto) 0.0, Baso # (Auto) 0.0 04/12/20 12:40: Sodium 135 L, Potassium 3.1 L, Chloride 98, Carbon Dioxide 33 H, Anion Gap 7.1, BUN 37 H, Creatinine 1.50 H, Estimated Creat Clear 52, Estimated GFR 48 L, Est GFR ( Amer) 58 L, Glucose 159 H, Calcium 7.8 L Result diagrams: 04/12/20 12:40 04/12/20 12:40 Orders (Tests/Meds): ED MEDICATIONS Discontinued Medications Generic Name Dose Route Start Last Admin Trade Name Jim PRN Reason Stop Dose Admin Morphine Sulfate 4 mg 04/12/20 13:47 Morphine 4mg/Ml Syringe IV 04/12/20 13:48 ONCE ONE ORDERS Category Date Time Status Chest XR -- portable [XR chest portable] Stat Exams 04/12/20 13:18 Taken Medical Decision Narrative: Patient is a 60-year-old male presenting with bilateral lower extremity edema and pain. Patient hemodynamically stable on arrival. Differential diagnosis does include liver failure, which patient already has, versus renal dysfunction. No cardiac symptoms. On review of his chart, he does take 60 mg torsemide. He does have some small areas of superficial ulceration without any signs of deeper space infection. Lab work was obtained to ensure no leukocytosis or other abnormalities indicating a deeper space infection. He has no generalized malaise, fever/chills, other signs of systemic illness. Lab work demonstrates no leukocytosis. I do believe patient's issues are more chronic than acute. His creatinine is elevated 1.5. I am concerned about giving IV Lasix here in the emergency department. He also has potassium of 3.1 but he cannot take any potassium supplements due to his hepatic dysfunction according to family at bedside. He was given 4 mg IV morphine and he states he feels much more comfortable at this time. He does live at home with family and is well taken care of. I do believe the best plan for this patient is to be discharged home with instructions to continue using compression stockings, elevation, and p
[2020-04-12 12:54] LABS: Basophils % 0.2 % (0.1-2.0); Eosinophils % 0.8 % (0.1-12.0); Hematocrit 30.2 % (42.0-52.0); Hemoglobin 9.6 g/dL (14.1-18.0); Lymphocytes # 0.4 K/mm3 (0.7-4.5); Lymphocytes % 10.5 % (10-50); Mean Corpuscular HGB Conc 31.9 g/dL (31.8-35.4); Mean Corpuscular Hemoglobin 32.7 pg (27.0-31.2); Mean Corpuscular Volume 102.6 fl (80-94); Mean Platelet Volume 8.8 fl (7.4-10.4); Monocytes # 0.2 K/mm3 (0.1-1.0); Monocytes % 6.2 % (1.7-9.3); Neutrophils % 82.2 % (37.0-80.0); Platelet Count 100 K/mm3 (142-424); Red Blood Count 2.94 M/mm3 (4.60-6.20); Red Cell Distribution Width 19.9 % (11.5-17.5); White Blood Count 3.6 K/mm3 (4.8-10.8)
[2020-04-12 12:59] LABS: Chloride 98 mmol/L (98-107); Potassium 3.1 mmoL/L (3.5-5.1); Sodium 135 mmol/L (136-145)
[2020-04-12 13:02] LABS: Anion Gap 7.1 mEq/L (5-15); Blood Urea Nitrogen 37 mg/dl (9-20); Calcium 7.8 mg/dl (8.4-10.2); Carbon Dioxide 33 mmol/L (22.0-30.0); Creatinine Clearance Estimated 52 mL/min (50-200); Estimated Glomerular Filt Rate 48 ml/min (>60); GFR (African American) 58 ML/MIN (>60); Glucose 159 mg/dl (74-100)
--- NOTE | 2020-04-12 13:18 | XR_ITS ---
PROCEDURE: XR CHEST PORTABLE CLINICAL HISTORY: altered mental status COMPARISON: Coban 19 is a consideration FINDINGS: This is a fairly good inspiration. Patchy ill-defined opacities are seen in both perihilar regions and lower lobes which were not seen on most recent chest film 03/25/2020. Again noted is mild generalized cardiomegaly however there is no pulmonary congestion. There is no pleural fluid. The MediPort catheter is again seen with tip in the SVC above the right atrium. There is an old healed fracture right clavicle and there is degenerate change of the right shoulder with a high-riding humeral head. IMPRESSION: Diffuse bilateral ill-defined opacities consistent with acute pneumonic infiltrates in certainly Covid 19 is a consideration. Dictated by: Dr. Tanner Frias MD 04/12/2020 15:04 Dr. Tanner Frias MD in [place] 04/12/2020 15:04
[2020-04-12 15:29] VITALS: BP 115/59; PULSE 75; RESP 20; TEMP 36.7; O2SAT 98
== END 2020-04-12 15:31 | disposition home or self-care (01) ==
PROVIDERS: Emergency Provider Emergency Medicine; PCP Family Medicine
DX: K70.31 Alcoholic cirrhosis of liver with ascites (principal); K72.90 Hepatic failure, unspecified without coma; E11.65 Type 2 diabetes mellitus with hyperglycemia; I10 Essential (primary) hypertension; I48.20 Chronic atrial fibrillation, unspecified; Z79.899 Other long term (current) drug therapy
CPT/HCPCS: 71045; 80048; 85025; 96374; 99282

== ENCOUNTER 2020-04-16 09:57 | Emergency (ER) | payer MEDICAID, SELFPAY ==
[2020-04-16] VITALS (7 sets, daily range): BP systolic 125–144; BP diastolic 69–78; PULSE 78–97; RESP 16–20; TEMP 36.6; O2SAT 97–100; BMI 37.5
--- NOTE | 2020-04-16 10:12 | HMH.EDGENADL ---
ED Disposition Clinical Impression: Chronic pain Qualifiers: Chronic pain type: chronic pain syndrome Qualified Code(s): G89.4 - Chronic pain syndrome Liver cirrhosis Qualifiers: Hepatic cirrhosis type: alcoholic cirrhosis Ascites presence: with ascites Qualified Code(s): K70.31 - Alcoholic cirrhosis of liver with ascites Disposition: Home, Self-Care Condition on Discharge: Fair Instructions: DI for Chronic Pain -- Adult Referrals: Bebeto Lerner MD [Primary Care Provider] - 3 days - Critical Care Critical Care Time: No Attestation: On 04/16/20, the high probability of a clinically significant, sudden or life threatening deterioration of the following system(s) required my full and direct attention, intervention and personal management. The time I documented below is in addition to time spent performing reported procedures but includes the following listed in this critical care notation. Medical Decision Making - Medical Records Medical records reviewed: Yes: I reviewed the patient's medical records. - Keith Inquiry Pt receiving controlled substance: Yes Keith was queried for this patient: No Risks and benefits of using a controlled substance: were discussed with pt by me (with ) Vital Signs: 04/16/20 09:58 04/16/20 10:19 04/16/20 10:30 Temperature 97.8 F Temperature Source Oral Pulse Rate [Radial] 94 H 87 97 H Respiratory Rate 20 18 18 Blood Pressure [Right Arm] 144/78 H 125/76 127/72 Blood Pressure Mean [Right Arm] 100 92 90 Blood Pressure Source [Right Arm] Automatic Cuff Automatic Cuff Blood Pressure Position [Right Arm] Sitting Sitting 02 Sat by Pulse Oximetry 98 100 99 Oxygen Delivery Method Room Air Room Air 04/16/20 11:20 04/16/20 12:00 Temperature Temperature Source Pulse Rate [Radial] 90 92 H Respiratory Rate 18 20 Blood Pressure [Right Arm] 132/69 141/71 H Blood Pressure Mean [Right Arm] 90 94 Blood Pressure Source [Right Arm] Automatic Cuff Automatic Cuff Blood Pressure Position [Right Arm] Supine 02 Sat by Pulse Oximetry 99 98 Oxygen Delivery Method Room Air Room Air Orders (Tests/Meds): ED MEDICATIONS Discontinued Medications Generic Name Dose Route Start Last Admin Trade Name Freq PRN Reason Stop Dose Admin Morphine Sulfate 4 mg 04/16/20 12:12 04/16/20 12:13 Morphine 4mg/Ml Syringe IV 04/16/20 12:13 4 mg ONCE ONE Administration Medical Decision Narrative: Patient here with chronic pain and requesting consult with hospice. Hospice evaluated the patient, has enrolled him in hospice care and have offered patient admission to the care center, however they have declined and want to go home. I have provided an additional dose of pain control here to help the patient get home comfortably. His primary care provider will prescribe more long-term pain control medications. Patient does have pain in the abdomen and bilateral lower extremities, pain is chronic, worsening over the last several weeks. I have low suspicion for sepsis or peritonitis. Patient does have DME at home. Discharge home. General Adult HPI - General Chief complaint: Abdominal Pain Stated complaint: abd pain Time Seen by Provider: 04/16/20 10:05 Mode of Arrival: EMS Source of Information: Patient, EMS Limitations: No Limitations Description of Symptoms (Recalled from ER Triage Doc. by RN): to ed per squad reports pt with c/o abd pain, liver disease, states pt recently had a paracentesis. pt confused, abd distended c/o pain with palp - History of Present Illness HPI narrative: 60-year-old male with a past medical history significant for alcoholic cirrhosis, HTN, DM, hepC, chronic waxing and waning metabolic encephalopathy who presents to the emergency department for evaluation of worsening of his chronic pain for the last several weeks. Patient has chronic pain in the abdomen and bilateral lower extremities secondary to swelling and edema. He has not had any fevers, vomiting
--- NOTE | 2020-04-16 10:17 | PC.NURSE ---
Hospice nurse here for another pt, Dr Miranda spoke with her regarding this pt as well per family request.
--- NOTE | 2020-04-16 10:35 | SW/DCPLANNER ---
Addendum entered by Felicia Ely 04/16/20 13:17: Juvenal with [facility] has stated that after evaluation with this family they have decided to return home and be admitted Hospice services once they return home. Patient will discharge home from ED today. Family and MD is agreeable with this plan. Addendum entered by Felicia Ely 04/16/20 11:55: Juvenal with [facility] is here to evaluate this patient. Addendum entered by Felicia Ely 04/16/20 10:41: Rita with [facility] has stated that she will be sending a nurse to [facility] ED to evaluate this patient. I will relay information to ED staff. Original Note: I have received notification that ED MD would like to [facility] to evaluate this patient in ED. Patient information has been faxed to [facility] and I will follow up with Hospice once patient information is reviewed.
--- NOTE | 2020-04-16 11:27 | PC.NURSE ---
niyah nuno advised [facility] would be here to see pt
--- NOTE | 2020-04-16 11:35 | PC.NURSE ---
at bedside updated on plan of care
--- NOTE | 2020-04-16 11:50 | PC.NURSE ---
Hospice nurse with pt at this time.
== END 2020-04-16 13:49 | disposition home or self-care (01) ==
PROVIDERS: Emergency Provider Emergency Medicine; PCP Family Medicine
DX: G89.4 Chronic pain syndrome (principal); K70.31 Alcoholic cirrhosis of liver with ascites; I10 Essential (primary) hypertension; E11.9 Type 2 diabetes mellitus without complications; I48.0 Paroxysmal atrial fibrillation; Z79.899 Other long term (current) drug therapy; Z88.6 Allergy status to analgesic agent
CPT/HCPCS: 96374; 96375; 99283